=== PATIENT | male | born 1995 | race Caucasian/White ===

== ENCOUNTER 2024-08-13 10:36 | Emergency (ER) | payer OTHER, SELFPAY ==
[2024-08-13 10:41] VITALS: BP 130/99; PULSE 88; TEMP 36.8; O2SAT 95; BMI 30.4
--- NOTE | 2024-08-13 12:19 | ED.GENADUL1 ---
HPI HPI - General Adult General Chief complaint: Psychiatric Symptoms Stated complaint: DEPRESSION MENTAL HEALTH Time Seen by Provider: 08/13/24 10:57 Source: patient Mode of arrival: walk-in Limitations: no limitations History of Present Illness HPI narrative: Patient is a 29-year-old male who is presenting to the ER today with chief complaint of multiple concerns relating to mental health. Patient is having insomnia, also significant amount of anxiety. Patient had a panic attack that occurred at 830 this morning. Patient was crying, hyperventilating, also shaking. Patient is currently taking Prozac 40 mg. Patient's PCP is prescribing this. He did have a physician who retired, Dr. Seo. Patient now is seeing a nurse practitioner. Patient was in the [employer] for 4 years, he [facility]. Patient states has been having insomnia for weeks. Patient works loading trucks. He is currently doing 2 weeks of nights coming up, that is part of his job. Patient is with and 2 kids. Patient's kids are 1 and 5 years old, both girls. Patient states he is lost his identity recently. He does not appear to feel helpless hopeless or worthless. Patient states he does have some undiagnosed depression and that is why she is on Prozac. Patient also has 2 brothers, they both have depression and PTSD. Patient believes some of his depression and PTSD is from the [employer]. Patient has not been diagnosed with bipolar or schizophrenia. He is not having any hallucinations. He is not having any delirium or delusions. Patient just got back from a [employer] cruise 3 weeks ago, having a good time with his family. Patient has moved out and is currently living with his mother try to give his some space. Patient has never smoked cigarettes, no vaping. No alcohol use. No illicit drug use. Patient is with his 2 daughters. Patient had a panic attack a month ago, had another panic attack today. Patient has not had panic attacks previously. Patient currently living with mother. Patient has not slept in several days, up all night thinking. All systems are negative except as noted/marked. All systems reviewed and otherwise negative. Nurses note and vital signs reviewed and patient is not hypoxic. General: The patient appears well and in no apparent distress. Patient is resting comfortably on cart. Patient is not toxic, lethargic, or listless. Good eye contact. Not delusional, not hallucinating. Skin: Warm, dry, no pallor noted. There is no rash noted. No petechiae, purpura. Multiple tattoos, no secondary signs of infection. No signs of self-harm, scratching, cutting. Head: Normocephalic, atraumatic Eye: Normal conjunctiva, no drainage, EOMI. PERRL Ears, Nose, Mouth, and Throat: oral mucosa is moist. Nares patent. Mouth without vesicles. Cardiovascular: Regular Rate and Rhythm, no murmur, gallop, rub Respiratory: Patient is in no distress, no accessory muscle use, lungs are clear to auscultation, no wheezing, rales or rhonchi Back: non-tender, no CVA tenderness bilaterally to percussion. No CT LS midline pain GI: no tenderness to palpation, no masses appreciated. No rebound, guarding, or rigidity noted. No distention Musculoskeletal: Patient has full range of motion of all of the extremities, no motor, sensory, or focal neurological deficits Neurological: A&O x4, normal speech Psychiatric: Cooperative; patient denies feeling hopeless, helpless, worthless. Not suicidal homicidal. Not hallucinating, delusional. Patient does have good eye contact, will answer questions appropriately. Patient says that he I lost my identity Related Data Home Medications ?Medication ?Instructions ?Recorded ?Confirmed amlodipine 10 mg tablet 10 mg PO DAILY 08/13/24 08/13/24 fluoxetine 40 mg capsule (Prozac) 40 mg PO DAILY 08/13/24 08/13/24 Previous Rx's ?Medication ?Instructions ?Recorded hydroxyzine HCl 50 mg tablet 50 mg PO TID PRN itching #10 tabs 08/13/24 lorazepam 1 mg tablet (Ativan) 1 mg PO DAILY PRN anxiety/insomnia 08/13/24 #5 tabs Allergies Allergy/AdvReac Type Severity Reaction Status Date / Time No Known Drug Allergies Allergy Verified 08/13/24 10:40 PFSH PFSH Social History Little interest or pleasure in doing things: not at all Feeling down, depressed, or hopeless: not at all Exam Constitutional Vital Signs, click to edit/add: Last Vital Signs Temp 98.2 F 08/13/24 10:41 Pulse 88 08/13/24 10:41 Resp 20 08/13/24 10:41 BP 130/99 H 08/13/24 10:41 Pulse Ox 95 08/13/24 10:41 O2 Del Method Room Air 08/13/24 10:41 Course Vital Signs Vital signs: Vital Signs Temperature 98.2 F 08/13/24 10:41 Pulse Rate 88 08/13/24 10:41 Respiratory Rate 20 08/13/24 10:41 Blood Pressure 130/99 H 08/13/24 10:41 Pulse Oximetry 95 08/13/24 10:41 Oxygen Delivery Method Room Air 08/13/24 10:41 Temperature 98.2 F 08/13/24 10:41 Pulse Rate 88 08/13/24 10:41 Respiratory Rate 20 08/13/24 10:41 Blood Pressure 130/99 H 08/13/24 10:41 Pulse Oximetry 95 08/13/24 10:41 Oxygen Delivery Method Room Air 08/13/24 10:41 Medical Decision Making MDM Narrative Medical decision making narrative: Patient seen and examined: 15 to 20 minutes was spent during initial HPI and physical exam. Mother and aunt were at bedside. Patient will speak to [facility], no acute need for medical clearance at this time. Differential diagnosis includes but is not limited to: Depression, anxiety, stress, bipolar, PTSD Reevaluation: Patient was very thankful for discussion with skilled nursing case manager and speaking to [facility]. Mother was happy with this as well. Shared decision making: I discussed with the patient the necessary laboratory findings and radiological findings. Social barriers to healthcare: There are no food insecurities, there is no issue with transportation, there are no insurance barriers. Disposition: I discussed with the patient options through the weekend. Patient was sent home a prescription for Ativan to help sleep at nighttime. Patient also has tried melatonin without much relief but could use this as well. Patient also was given prescription for Vistaril. Patient will continue taking Prozac. Patient has an appointment next Friday and with 2 different counselors, 1 through pending sale to [facility] and the other [address] on Friday in [place]. Patient understands reasons and why to come back to the ER. Patient mother very thankful for help. No questions at discharge. Patient is not suicidal homicidal at bedside at discharge. Patient is not helpless, hopeless, worthless. Patient was happy with the plan and follow-up that he has next week. Patient mother very thankful for time and help. Patient did not meet admission criteria. Patient did have a crisis safety plan written, patient agrees and did sign Discharge Plan Discharge Chief Complaint: Psychiatric Symptoms Clinical Impression: Insomnia, Situational anxiety, Depression Patient Disposition: Home, Self-Care Time of Disposition Decision: 14:07 Condition: Fair Prescriptions / Home Meds: New hydroxyzine HCl 50 mg tablet 50 mg PO TID PRN (Reason: itching) Qty: 10 0RF lorazepam [Ativan] 1 mg tablet 1 mg PO DAILY PRN (Reason: anxiety/insomnia) Qty: 5 0RF No Action fluoxetine [Prozac] 40 mg capsule 40 mg PO DAILY amlodipine 10 mg tablet 10 mg PO DAILY Print Language: Hebrew Instructions: Insomnia (ED), Anxiety in Adolescents (ED), Depressive Disorder in Adolescents (ED) Additional Instructions: Follow-up with your appointment on Friday and . If anything changes with insomnia, anxiety, more panic attacks, or any thoughts of helpless, hopeless, worthless, or self-harm, please return to the ER immediately. Referrals: [facility] [Other] - [facility] week [facility] RG CABRERA NP [Primary Care Provider] - 1 week Discharge Date/Time: 08/13/24 14:24
== END 2024-08-13 14:24 | disposition home or self-care (01) ==
PROVIDERS: Emergency Provider Emergency Medicine; PCP Nurse Practitioner Family
DX: F41.8 Other specified anxiety disorders (principal); F32.A Depression, unspecified; G47.00 Insomnia, unspecified; Z79.899 Other long term (current) drug therapy
CPT/HCPCS: 99283